=== PATIENT | male | born 1995 ===

== ENCOUNTER 2019-06-20 21:28 | Emergency (ER) | payer SELFPAY ==
--- NOTE | 2019-06-20 21:33 | UC ---
General HPI - HPI Summary HPI Summary: 24 yo gentleman c/o abd pain all day, starting in the morning. No fever / chills. Has had similar pain in the past, and has been worked up, plans to work up further, but right now is between medical insurance. Thinks he will be able to see pcp next week. No fever / chills. No v/d. Pain is a lot better now, but hasn't tried to eat yet. He will start to eat, but would like to make sure that he has a work note, in case pain returns. Does not want further workup tonight. No chest pain / sob. No melena / brbpr. No urinary issues. No rash. Has had episodic abd pain x several years. - History of Current Complaint Stated Complaint: ABD PAIN Time Seen by Provider: 06/20/19 21:32 Hx Obtained From: Patient - Allergy/Home Medications Allergies/Adverse Reactions: Allergies Allergy/AdvReac Type Severity Reaction Status Date / Time cucumber Allergy Swelling Uncoded 06/20/19 21:39 Home Medications: Home Medications Famotidine TAB* [Pepcid 20 MG TAB*] 20 mg PO DAILY 06/20/19 [History Confirmed 06/20/19] PMH/Surg Hx/FS Hx/Imm Hx Previously Healthy: Yes - but see hpi - Surgical History Surgical History: Yes Surgery Procedure, Year, and Place: right eyelid; wisdom teeth extracted 08/2014 - Social History Alcohol Use: Occasionally Substance Use Type: Marijuana Substance Use Comment - Amount & Last Used: last faustina Smoking Status (MU): Heavy Every Day Tobacco Smoker Type: Cigarettes Amount Used/How Often: 3/4 PPD Have You Smoked in the Last Year: Yes Household Exposure Type: Cigarettes Review of Systems All Other Systems Reviewed And Are Negative: Yes Constitutional: Positive: Other - see hpi Skin: Positive: Negative Eyes: Positive: Negative ENT: Positive: Negative Respiratory: Positive: Negative Cardiovascular: Positive: Negative Gastrointestinal: Positive: Other - see hpi Genitourinary: Positive: Other - see hpi Motor: Positive: Negative Neurovascular: Positive: Negative Musculoskeletal: Positive: Negative Neurological: Positive: Negative Psychological: Positive: Negative Is Patient Immunocompromised?: No Physical Exam Triage Information Reviewed: Yes Appearance: Well-Appearing, Thin Vital Signs Reviewed: Yes Eye Exam: Normal ENT Exam: Normal Neck exam: Normal Neck: Positive: Supple Respiratory Exam: Normal Respiratory: Positive: Chest non-tender, Lungs clear, Normal breath sounds, No respiratory distress Cardiovascular Exam: Normal Cardiovascular: Positive: RRR, No Murmur, Pulses Normal, Brisk Capillary Refill Abdominal Exam: Other - + nabs sitting up, no cvat tenderness not reproduced with exam, points to mid upper abd region. No bruit appreciated. + nabs. hsm not appreciated nondistended Musculoskeletal Exam: Normal Neurological Exam: Normal - grossly nonfocal Psychological Exam: Normal - conversing easily and appropriately. nad Skin Exam: Normal - nondiaphoretic no visible or reported rash Course/Dx - Course Course Of Treatment: Reviewed urine dip (see meditech). 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 He does not want further eval / workup tonight. Reports feeling better, but will go to the ED for any worse or new problems. Hasn't tried to eat yet, but will try to eat at home, again he is aware to go to the ED if problems. He will call pcp and try to get an appt for early this week. Work note written until Sunday. 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 Questions as posed answered to the best of my ability. - Diagnoses Provider Diagnosis: Acute abdominal pain Discharge ED - Sign-Out/Discharge Documenting (check all that apply): Patient Departure All imaging exams completed and their final reports reviewed: No Studies - Discharge Plan Condition: Stable Disposition: HOME Prescriptions: Albuterol HFA INHALER* [Ventolin HFA Inhaler*] 1 - 2 puff INH Q4H PRN #1 mdi PRN Reason: Wheezing Patient Education Materials: Acute Abdominal Pain (ED), Wheezing (ED) Forms: *Work Release Referrals: Ortiz More PA [Primary Care Provider] - Additional Instructions: Follow up with your primary care provider - call on Sunday to schedule an appointment, next week if possible. Meanwhile go to the Emergency Department for any worse or new problems. Hydrate. - Billing Disposition and Condition Condition: STABLE Disposition: Home
[2019-06-20 21:39] VITALS: BP 114/78
== END 2019-06-20 22:12 | disposition home or self-care (01) ==
LOC: UCCORT 21:28
DX: R10.9 Unspecified abdominal pain (principal); F17.210 Nicotine dependence, cigarettes, uncomplicated; Z91.018 Allergy to other foods
CPT/HCPCS: 81003; 99212; G0463